=== PATIENT | male | born 1940 | race Caucasian/White ===

== ENCOUNTER 2023-07-28 08:19 | Day surgery (SDC) | payer OTHER ==
[~2023-07-28] VITALS: Ht 162.6 cm; Wt 71.7 kg
[2023-07-28] MEDS ORDERED: MIDAZOLAM 2 MG/2 ML VIAL ONE (10:02)
[2023-07-28] MEDS ORDERED: fentaNYL citrate 0.05 MG/ML VIAL ONE (10:02)
[2023-07-28] MEDS ORDERED: fentaNYL citrate 0.05 MG/ML VIAL IVP ONE (11:45)
[2023-07-28] MEDS ORDERED: MIDAZOLAM 2 MG/2 ML VIAL IVP ONE (11:45)
== END 2023-07-28 11:25 | disposition home or self-care (01) ==
LOC: MDS 08:19 → MMU 08:19 → MDS 11:25
PROVIDERS: ATTEND Internal Medicine Gastroenterology
DX: R13.10 Dysphagia, unspecified (principal); R14.0 Abdominal distension (gaseous); K21.00 Gastro-esophageal reflux disease with esophagitis, without bleeding; I10 Essential (primary) hypertension; E78.5 Hyperlipidemia, unspecified; Z79.899 Other long term (current) drug therapy
CPT/HCPCS: 43235; J2250; J3010